=== PATIENT | female | born 1945 | race Caucasian/White ===

== ENCOUNTER → 2016-12-02 | Outpatient (CLI) | payer MEDICARE, OTHER ==
[~2016-12-02] MED LIST: CIPR200V4 IV; DULO60CA6 PO; FLUT1DIS3 IH; FLUT9.9S NS; GADOBUTROL 10 MMOL/10 ML VIAL IV ONE; LAMO250T PO; MIRT30TA PO; POTA20TA4 PO; VALS1TAB22 PO; VENTOLIN HFA8 GM IH
--- NOTE | 2016-12-02 16:52 | KCIC ---
PROCEDURE MRI of the abdomen without and with contrast 12/02/2016 HISTORY History of abnormal lesion of the left kidney. Follow-up MRI imaging was recommended. TECHNIQUE Unenhanced T1 weighted in and out of phase axial and T2 weighted axial and coronal images of the abdomen were obtained. After the intravenous administration of 5 cc of Gadavist, enhanced enhanced fat saturated T1 weighted axial images of the abdomen were obtained. FINDINGS Comparison is made to patient's previous MRI of the abdomen dated 06/09/[address] scan of the abdomen dated 05/30/2016. Several rounded high signal intensity lesions are seen scattered throughout both kidneys on the T2 weighted images which measure 2 millimeters to 1.4 centimeters in size. These likely represent simple cysts. They are unchanged. A rounded area of decreased signal intensity is seen involving the lateral aspect of the superior/mid pole of the left kidney on the T1 weighted and T2 weighted images. It measures 1.3 centimeters in size. It does not demonstrate definite contrast enhancement. Its MRI appearance is nonspecific. It is unchanged when compared to the previous examinations. No new abnormality is seen involving either kidney. The liver, spleen, pancreas and adrenal glands are within normal limits. The abdominal aorta tapers normally. No free fluid is seen within the abdomen. IMPRESSION Stable MRI appearance of the 1.3 centimeter low signal intensity lesion involving the left kidney as outlined above. Electronically signed by: Jadiel Guevara MD (Dec 02, 2016 16:51:11)
== END | disposition home or self-care (01) ==
LOC: KCIC MRI 15:14
PROVIDERS: ATTEND Family Medicine
DX: N28.1 Cyst of kidney, acquired (principal); J45.909 Unspecified asthma, uncomplicated; J44.9 Chronic obstructive pulmonary disease, unspecified; I10 Essential (primary) hypertension
CPT/HCPCS: 74183; 82565; A9585

== ENCOUNTER → 2021-04-21 | Outpatient (CLI) | payer MEDICARE, OTHER ==
[~2021-04-21] MED LIST changes: -GADOBUTROL 10 MMOL/10 ML VIAL IV ONE; +MIRT-34 PO; -MIRT30TA PO; -VALS1TAB22 PO; +VALS1TAB23 PO
--- NOTE | 2021-04-21 10:53 | RAD ---
EXAM: RENAL ULTRASOUND CLINICAL HISTORY: Hypertension COMPARISON: None TECHNIQUE: Ultrasound examination of the bilateral kidneys and urinary bladder was performed grayscal e and color spectral Doppler ultrasound. FINDINGS: The aorta measures 2.2 cm proximally and 1.6 cm in the midportion. Right kidney measures 10.4 x 4.0 x 4.6 cm. There is normal cortical thickness and echogenicity. No hy dronephrosis. The left kidney measures 10.1 x 5.2 x 4.0 cm. Evaluation of the left kidney is limited due to shadowi ng from bowel gas. 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 No hydronephrosis. The bladder is decompressed. Doppler: RIGHT RENAL ARTERY peak systolic velocity (cm/s) and resistive index: Proximal: 92, 0.69 Middle: 117, 0.73 Distal: 104, 0.67 LEFT RENAL ARTERY peak systolic velocity (cm/s) and resistive index: Proximal: 78, 0.77 Middle: 63, 0.75 Distal: 51, 0.70 Peak systolic velocity of the aorta is 80.6 cm/s. RIGHT renal artery/aorta ratio: 1.5 LEFT renal artery/aorta ratio: 0.97 MPRESSION: 1. No evidence of renal artery stenosis. 2. Limited evaluation of the left kidney due to shadowing. A 1.4 cm echogenic mass with no internal v ascularity in the superior left renal pole correlates with renal mass seen on MRI to 2016 and is g rossly unchanged in size. Electronically signed by: Anali Broderick MD (04/21/2021 10:50 AM) [id number]
== END ==
LOC: US 07:11
PROVIDERS: ATTEND Family Medicine
DX: N28.89 Other specified disorders of kidney and ureter (principal); I10 Essential (primary) hypertension
CPT/HCPCS: 76770